=== PATIENT | male | born 1970 | race Caucasian/White ===

== ENCOUNTER 2019-10-21 23:11 | Emergency (ER) | payer OTHER ==
[~2019-10-21] VITALS: Ht 160 cm; Wt 59.0 kg
[2019-10-22 01:10] VITALS: BP 122/78
--- NOTE | 2019-10-22 17:22 | EKG ---
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 10/22/19 1722 2338 2338 Vinay Lea MD, [facility] /EPI
== END 2019-10-22 01:10 ==
LOC: M.ERS 23:11
DX: S01.21XA Laceration without foreign body of nose, initial encounter (principal); S01.311A Laceration without foreign body of right ear, initial encounter; F10.129 Alcohol abuse with intoxication, unspecified; Z88.1 Allergy status to other antibiotic agents; Y04.0XXA Assault by unarmed brawl or fight, initial encounter; Y93.89 Activity, other specified; Y92.89 Other specified places as the place of occurrence of the external cause; Y99.8 Other external cause status; Y90.8 Blood alcohol level of 240 mg/100 ml or more